=== PATIENT | male | born 1960 | race Caucasian/White ===

== ENCOUNTER 2025-03-06 09:08 | Outpatient (CLI) | payer MEDICARE, MEDICAID, SELFPAY ==
[2025-03-06 18:47] LABS: Hematocrit 42.8 % (42.0-52.0); Hemoglobin 13.3 g/dL (14.1-18.0); Immature Granulocytes % 0.4 %; Mean Corpuscular HGB Conc 31.1 g/dL (31.8-35.4); Mean Corpuscular Hemoglobin 27.9 pg (27.0-31.2); Mean Corpuscular Volume 89.7 fl (80-94); Nucleated Red Blood Cells % 0 %; Platelet Count 288 K/mm3 (142-424); Red Blood Count 4.77 M/mm3 (4.60-6.20); Red Cell Distribution Width-SD 49.3 fL; White Blood Count 8.6 K/mm3 (4.8-10.8)
[2025-03-06 19:10] LABS: Alanine Aminotransferase 28 U/L (12-78); Albumin Level 4.5 g/dl (3.5-5.0); Albumin/Globulin Ratio 1.7 (1.1-1.8); Alkaline Phosphatase 91 U/L (38-126); Anion Gap 11.6 mEq/L (5-15); Aspartate Amino Transferase 26 U/L (17-59); Bilirubin,Total 0.4 mg/dl (0.2-1.3); Blood Urea Nitrogen 12 mg/dl (9-20); Calcium 10.0 mg/dl (8.4-10.2); Carbon Dioxide 24 mmol/L (22.0-30.0); Chloride 104 mmol/L (98-107); Cholesterol 129 mg/dl (140-200); Creatinine,Serum 0.80 mg/dl (0.66-1.25); Estimated Glomerular Filt Rate 98 ml/min (>60); GFR (African American) 119 ML/MIN (>60); Globulin 2.6 g/dL (1.3-3.2); Glucose 98 mg/dl (74-100); HDL Cholesterol 51 mg/dl (40-60); Potassium 4.6 mmoL/L (3.5-5.1); Sodium 135 mmol/L (136-145); Total Protein,Serum 7.1 g/dl (6.3-8.2); Triglycerides 170 mg/dl (30-150)
[2025-03-06 19:41] LABS: Thyroid Stimulating Hormone 1.34 uIU/mL (0.465-4.68)
[2025-03-06 19:59] LABS: Hepatitis C Ab Qual. W/ RFX NEGATIVE (Negative)
[2025-03-08 08:17] LABS: Hepatitis B Surface Antigen Negative (Negative)
== END 2025-03-06 23:59 ==
LOC: LAB.DROPOF 03-10 09:08
PROVIDERS: PCP Family Medicine Addiction Medicine; Visit Provider Nurse Practitioner Family
DX: E78.5 Hyperlipidemia, unspecified (principal); Z11.59 Encounter for screening for other viral diseases; I10 Essential (primary) hypertension; I25.10 Atherosclerotic heart disease of native coronary artery without angina pectoris
CPT/HCPCS: 80053; 80061; 84443; 85025; 86803; 87340; 87389; G0103

== ENCOUNTER 2025-04-07 12:48 | Outpatient (CLI) | payer MEDICARE, MEDICAID, SELFPAY ==
--- NOTE | 2025-04-07 13:30 | CA_ITS ---
APPROVED REPORT EXAM: Comprehensive 2D, Doppler, and color-flow Echocardiogram Lead Athlete: Felisha Ledesma RVT Ht: 6 ft 2 in Wt: 186lbs BSA: 2.11 BP: 146/86 mmHg Indications: LV FUNCTION PRE PPM REPLACEMENT,CORONARY ARTERY DISEASE 2D Dimensions IVSd 0.99 cm M: 0.6-1.2 LVEF (Visual) 57.50 % PWd 0.93 cm M: 0.6 - 1.2 LVDd 3.58 cm M: 4.2 - 5.9 LVDs 2.52 cm M: 2.5 - 4.0 M-Mode Dimensions LA Diam 2.19 cm (1.9-4.0) LV Diastology E Decel Time 150 (160-240 msec) E/A Ratio 0.7 Aortic Valve JACQUIE Index 1.90 cm2/m2 AoV Peak Wilber. 125.0 (50-130 cm/s) AO Peak GR. 6.20 mmHg AO Mean GR. 3.90 (<5 mmHg) AO VTI 20.8 (18-25 cm) JACQUIE (VTI) 4.10 (2.5-4.5 cm2) Mitral Valve MV E Max Wilber. 61.0 (40-130 cm/s) MV A Velocity 92.0 (40-130 cm/s) E/A Ratio 0.66 MV PHT 44.0 ms Pulmonary Valve PV Peak Velocity 110.0 (50-150 cm/s) Left Ventricle The left ventricle is normal size. Left ventricular systolic function is normal. The left ventricular ejection fraction is within the normal range. There is increased left ventricular wall thickness. There is normal LV segmental wall motion. The left ventricular diastolic function is normal. LVEF is 60%. Right Ventricle The right ventricle is mildly dilated. The right ventricular systolic function is normal. Atria The left atrium size is normal. The right atrium size is normal. There is no color Doppler evidence of interatrial shunt. Aortic Valve The aortic valve opens well. There is no hemodynamically significant aortic valvular stenosis. No aortic regurgitation is present. Mitral Valve The mitral valve is normal in structure. No evidence of mitral valve stenosis. Trace mitral regurgitation is present. Tricuspid Valve The tricuspid valve leaflets are thin and pliable. Trace tricuspid regurgitation. There is insufficient TR jet to estimate RVSP. Pulmonic Valve The pulmonary valve is grossly normal in structure. Trace pulmonic valve regurgitation is present. Great Vessels The aortic root is normal in size. IVC is normal in size and collapses >50% with inspiration. Pericardium There is no pericardial effusion. Other Information Study Quality: Technically Difficult Conclusion Normal biventricular systolic function. Mild RV dilation. No significant valvular stenosis or regurgitation. Electronically signed by : Yoana Odell MD 04/10/2025 13:54:52
== END 2025-04-07 23:59 | disposition home or self-care (01) ==
LOC: RT 12:48
PROVIDERS: PCP Nurse Practitioner Family; Visit Provider Physician Assistant
DX: I25.10 Atherosclerotic heart disease of native coronary artery without angina pectoris (principal); Z86.74 Personal history of sudden cardiac arrest; I25.2 Old myocardial infarction
CPT/HCPCS: 93306